=== PATIENT | female | born 1980 | race Caucasian/White ===

== ENCOUNTER 2017-10-13 08:38 | Outpatient (CLI) | payer BC ==
--- NOTE | 2017-10-13 14:30 | MRI ---
MRI CERVICAL SPINE WITH AND WITHOUT IV CONTRAST: Date: 10/13/17 INDICATION: Cervical spondylosis. TECHNIQUE: Multiplanar, multisequence MR images were obtained of the cervical spine with and without IV contrast . The patient received 10 mL of MultiHance for the exam. FINDINGS: Craniocervical junction and posterior fossa appear within normal limits. At C2-C3, there is mild facet joint degenerative change but without appreciable central canal or neur al foraminal narrowing. At C3-4, there is mild facet joint degenerative change without appreciable central canal or neural fo raminal narrowing. At C4-5, there is no appreciable central canal or neural foraminal narrowing. There is mild facet ost eoarthrosis. At C5-6, there is no appreciable central canal or neural foraminal narrowing. There is mild facet tamar nt degenerative change. At C6-7, there is no appreciable central canal or neural foraminal narrowing. At C7-T1, there is no appreciable central canal or neural foraminal narrowing present. Visualized postcontrast images demonstrate no definite abnormal enhancement. IMPRESSION: Mild facet osteoarthritic change of the cervical spine. No appreciable central canal or neural forami nal narrowing. POS: [facility]
--- NOTE | 2017-10-13 14:50 | MRI ---
MRI OF THE THORACIC SPINE WITH ND WITHOUT IV CONTRAST: INDICATION: Thoracic spondylosis. TECHNIQUE: Multiplanar, multisequence MR images were obtained of the thoracic spine with and without IV contrast utilizing 10 cc of MultiHance. FINDINGS: The vertebral body heights and intervertebral disk spaces appear preserved. Bone marrow signal inten sity appears within normal limits. There is diffuse intermediate signal intensity of the thoracic ve rtebral bodies which can be seen with some red marrow hyperplasia. No definite central canal or neural foraminal narrowing is evident. The spinal cord is of normal yumiko iber and signal. There are small bilateral pleural effusions incidentally noted. The postcontrast s eries demonstrates no abnormal region of enhancement. IMPRESSION: 1. No central canal or neural foraminal narrowing is evident. No definite abnormal enhancement demo nstrated. 2. Diffuse intermediate T1 signal involving the visualized actual bone marrow can be seen with red m arrow hypoplasia related to chronic anemia, smoking, or obesity. Recommend correlation with patient' s CBC. 3. Nonspecific small bilateral pleural effusions. POS: [facility]
--- NOTE | 2017-10-13 14:56 | MRI ---
MRI BRAIN WITH AND WITHOUT CONTRAST: Technique: Multiplanar, multisequence MRI images were obtained of the brain. Pre and post contrast im ages were obtained following a pituitary protocol with dynamic enhancement and an orbit protocol. 10 cc MultiHance was administered for the post contrast study. Indications: Right eye vision loss. Generalized weakness. Comparison: MRI brain 08-13-15. FINDINGS: Ventricles have normal size and position. No evidence of mass or edema. No significant white matter a bnormality. No evidence of restricted diffusion. Pituitary appears unremarkable for age. There is no evidence of pituitary adenoma identified on dynamic scans through the pituitary. The post contrast scans of the orbit are nondiagnostic due to motion artifact. The technologist state s that the patient kept falling asleep and moving during these sequences and optic nerves on post con trast exam cannot be adequately assessed. The optic nerves on the precontrast studies appear unremarkable. There is no abnormal T2 signal seen in the optic nerve. Globes appear unremarkable. Extraocular muscles appear normal and symmetric. The intracranial internal carotid arteries and proximal cerebral arteries show flow voids. Basilar ar dane is patent. Dural venous sinuses are patent. Paranasal sinuses and mastoids appear clear. IMPRESSION: Unremarkable MRI of the brain and the pituitary. The post contrast images through the orbit are nondi agnostic due to motion artifact. The optic nerves appear unremarkable on the precontrast images. POS: [facility]
[2017-10-13] MEDS ORDERED: Gadobenate Dimeglumine 529 MG/1 ML (20ML VIAL) ONE (16:31)
== END 2017-10-13 08:39 | disposition home or self-care (01) ==
LOC: MRI 08:38
PROVIDERS: ATTEND Psychiatry & Neurology Neurology
DX: M47.892 Other spondylosis, cervical region (principal); M47.894 Other spondylosis, thoracic region; H53.47 Heteronymous bilateral field defects; J90 Pleural effusion, not elsewhere classified
CPT/HCPCS: 70553; 72156; 72157; A9579

== ENCOUNTER 2022-08-03 11:39 | Observation (INO) | payer BC ==
[2022-08-03] MEDS ORDERED: Levofloxacin 500 mg/D5W 100 ml Premix Bag ONE (12:13)
[2022-08-03] MEDS ORDERED: Ondansetron PF 4 MG/2 ML Vial ONE ×2 (12:13→12:38)
[2022-08-03] MEDS ORDERED: Fentanyl 100 MCG/2 ML VIAL ONE ×3 (12:13→14:38)
[2022-08-03] MEDS ORDERED: Acetaminophen 325 MG TAB PO PRN (12:15)
[2022-08-03] MEDS ORDERED: Guaifenesin DM 100-10/5 ML UDCUP PO PRN (12:15)
[2022-08-03] MEDS ORDERED: Senokot S 8.6-50 MG TAB PO PRN (12:15)
[2022-08-03] MEDS ORDERED: Calcium Carbonate 500 MG ChewTAB PO PRN (12:15)
[2022-08-03] MEDS ORDERED: Morphine 2 MG/ML VIAL SLOW IVP PRN (12:17)
[2022-08-03] MEDS ORDERED: Iopamidol 30 ML ONE (12:19)
[2022-08-03] MEDS ORDERED: fentaNYL PF 100 MCG/2 ML SYRINGE ONE (12:22)
[2022-08-03] MEDS ORDERED: Famotidine/PF 20 mg/2ml Vial ONE (12:23)
[2022-08-03] MEDS ORDERED: Rocuronium Bromide 10 MG/ML (10ML VIAL) ONE (12:38)
[2022-08-03] MEDS ORDERED: Dexamethasone 20 MG/5 ML VIAL ONE (12:38)
[2022-08-03] MEDS ORDERED: Lidocaine 1% PF 5 ML VIAL ONE (12:38)
[2022-08-03] MEDS ORDERED: Ketorolac Tromethamine 30 MG/ML VIAL ONE (12:38)
[2022-08-03] MEDS ORDERED: Succinylcholine Chloride 100 MG/5 ML SYRINGE FS ONE (12:38)
[2022-08-03] MEDS ORDERED: PROPOFOL 200 MG/20 ML VIAL ONE (12:38)
[2022-08-03] MEDS ORDERED: SUGAMMADEX SODIUM 200 MG/2 ML VIAL ONE (12:48)
[2022-08-03] MEDS ORDERED: cefTRIAXone\\ROCEPHIN 2 GM in Sodium Chloride 0.9% 100 ML IVPB SCH (13:00)
[2022-08-03] MEDS ORDERED: cefTRIAXone\\ROCEPHIN 2 GM VIAL ONE (14:39)
[2022-08-03] MEDS ORDERED: Sodium Chloride 0.9% 100 ML ONE (14:39)
[2022-08-03] MEDS: Sodium Chloride 0.9% 1,000 ML IV SCH ×2 (15:22→20:23)
[2022-08-03 15:42] VITALS: BMI 34.4
[2022-08-03] MEDS ORDERED: Acetaminophen 500 MG TAB PO PRN (17:36)
[2022-08-03] MEDS ORDERED: Oxybutynin 5 MG TAB PO PRN (17:36)
[2022-08-03] MEDS ORDERED: diphenhydrAMINE 50 MG/ML VIAL IVP PRN (17:36)
[2022-08-03] MEDS ORDERED: Phenazopyridine HCl 100 MG TAB PO PRN (17:40)
[2022-08-03] MEDS: Famotidine 20 MG TAB PO SCH (20:22)
[2022-08-03] MEDS: HYDROcodone/Acetaminophen 5/325 mg Tablet PO PRN (20:22)
[2022-08-03] MEDS: Docusate 100 MG CAP PO SCH (20:22)
[2022-08-03] MEDS: Ondansetron PF 4 MG/2 ML Vial IVP PRN (20:23)
[2022-08-04] MEDS: Sodium Chloride 0.9% 1,000 ML IV SCH (05:30)
[2022-08-04 07:52] LABS: #Eosinphils 0.1 thou/uL (0.0-0.7); #Lymphocytes 1.8 thou/uL (1.20-3.40); #Monocytes 0.5 thou/uL (0.11-0.59); #Neutrophils 2.8 thou/uL (1.40-6.50); %Basophils 0.3 % (0.0-1.0); %Eosinophils 1.7 % (0.0-10.0); %Lymphocytes 34.3 % (21.0-51.0); %Monocytes 10.2 % (0.0-10.0); %Neutrophils 53.5 % (42.0-75.0); Hemoglobin 11.2 g/dL (12.0-16.0); Mean Corpuscular HGB CONC 32.4 g/dL (32.0-36.0); Mean Corpuscular Hemoglobin 29.6 pg (27.0-31.0); Mean Corpuscular Volume 91.5 fl (78.0-98.0); Mean Platelet Volume 8.7 fL (7.4-10.4); Platelet Count 132 10x3/uL (130-400); RBC Distribution Width 11.4 % (11.5-14.5); Red Blood Cell (RBC) Count 3.78 mill/uL (4.20-5.40); White Blood Cell (WBC) Count 5.3 10x3/uL (4.8-10.8)
[2022-08-04 07:59] VITALS: TEMP 97.5
[2022-08-04 08:09] LABS: ALT (SGPT) 9 U/L (8-55); AST (SGOT) 13 U/L (5-34); Albumin 3.3 g/dL (3.5-5.0); Alkaline Phosphatase 40 U/L (40-110); Anion Gap 9 mmol/L (10-20); BUN (Urea Nitrogen) 10 mg/dL (7.0-18.7); Bilirubin, Total 0.6 mg/dL (0.2-1.2); Calc. Creatinine Clearance 145 mL/min (70-130); Calcium 8.5 mg/dL (7.8-10.44); Carbon Dioxide 23 mmol/L (22-29); Chloride 110 mmol/L (98-107); Estimated GFR 80; Globulin 2.8 g/dL (2.4-3.5); Glucose 85 mg/dL (70-105); Potassium 3.9 mmol/L (3.5-5.1); Protein, Total 6.1 g/dL (6.0-8.3); Sodium 138 mmol/L (136-145)
[2022-08-04] MEDS: Famotidine 20 MG TAB PO SCH (08:10)
[2022-08-04] MEDS: Ondansetron PF 4 MG/2 ML Vial IVP PRN (08:10)
[2022-08-04] MEDS: Docusate 100 MG CAP PO SCH (08:10)
[2022-08-04] MEDS: HYDROcodone/Acetaminophen 5/325 mg Tablet PO PRN (08:22)
[2022-08-04 11:39] LABS: Clarity Hazy (Clear)
[2022-08-04 11:40] LABS: Bilirubin Unable to Interpret (Negative); Blood, Urine Unable to Interpret (Negative); Glucose, Urine (Dipstick) Unable to Interpret mg/dL (Negative); Ketone, Urine Unable to Interpret mg/dL (Negative); Leukocyte Unable to Interpret (Negative); Nitrite Unable to Interpret (Negative); Protein, Urine (Dipstick) Unable to Interpret mg/dL (Neg-Trace); RBC/HPF Greater than 50 HPF (0-3); Specific Gravity, Urine 1.018 (1.002-1.036); Urobilinogen UNABLE TO INTERPRET mg/dL (Less than 2)
[2022-08-04 11:41] LABS: Bacteria/HPF Rare-Few HPF (None Seen)
[2022-08-04 11:56] VITALS: BP 120/75
== END 2022-08-04 12:54 | disposition home or self-care (01) ==
LOC: SDC 11:39 → T4-B 15:18
PROVIDERS: ADMIT Internal Medicine; ATTEND Internal Medicine
PROC: 0T778DZ Dilation of Left Ureter with Intraluminal Device, Via Natural or Artificial Opening Endoscopic (ICD-10-PCS; principal; 2022-08-03)
DX: N13.2 Hydronephrosis with renal and ureteral calculous obstruction (principal); N13.4 Hydroureter; E03.9 Hypothyroidism, unspecified; M79.7 Fibromyalgia; Z87.891 Personal history of nicotine dependence; Z79.890 Hormone replacement therapy; Z79.899 Other long term (current) drug therapy; Z88.1 Allergy status to other antibiotic agents
CPT/HCPCS: 36415; 74420; 80053; 81001; 85025; 87040; 87086; C2617; J0696; J1100; J1885; J1956; J2405; J2704; J3010; J3490; J7050; Q9967; S0028

== ENCOUNTER 2022-08-09 08:14 | Day surgery (SDC) | payer BC ==
[2022-08-06 14:00] VITALS: BMI 36.2
[2022-08-09] MEDS ORDERED: Iopamidol 30 ML ONE (10:29)
[2022-08-09] MEDS ORDERED: fentaNYL PF 100 MCG/2 ML SYRINGE ONE (10:46)
[2022-08-09] MEDS ORDERED: Levofloxacin 500 mg/D5W 100 ml Premix Bag ONE (10:52)
[2022-08-09] MEDS ORDERED: Ketorolac Tromethamine 30 MG/ML VIAL ONE (10:59)
[2022-08-09] MEDS ORDERED: PROPOFOL 200 MG/20 ML VIAL ONE (10:59)
[2022-08-09] MEDS ORDERED: NEOSTIGMINE 3 MG/3 ML SYR 3 MG/3 ML SYRINGE ONE (10:59)
[2022-08-09] MEDS ORDERED: Glycopyrrolate 0.2 MG/ML 5 ML SYRINGE ONE (10:59)
[2022-08-09] MEDS ORDERED: Rocuronium Bromide 10 MG/ML (10ML VIAL) ONE (10:59)
[2022-08-09] MEDS ORDERED: Lidocaine 1% PF 5 ML VIAL ONE (10:59)
[2022-08-09] MEDS ORDERED: Dexamethasone 20 MG/5 ML VIAL ONE (10:59)
[2022-08-09] MEDS ORDERED: Ondansetron PF 4 MG/2 ML Vial ONE (10:59)
[2022-08-09] MEDS ORDERED: Phenazopyridine HCl 100 MG TAB ONE (11:59)
== END 2022-08-09 12:54 | disposition home or self-care (01) ==
LOC: SDC 08:14
PROVIDERS: ATTEND Urology
PROC: 0T778DZ Dilation of Left Ureter with Intraluminal Device, Via Natural or Artificial Opening Endoscopic (ICD-10-PCS; principal; 2022-08-09)
PROC: 0TC78ZZ Extirpation of Matter from Left Ureter, Via Natural or Artificial Opening Endoscopic (ICD-10-PCS; principal; 2022-08-09)
DX: N20.1 Calculus of ureter (principal); M19.90 Unspecified osteoarthritis, unspecified site; M79.7 Fibromyalgia; Z79.2 Long term (current) use of antibiotics; Z79.890 Hormone replacement therapy; Z79.899 Other long term (current) drug therapy; Z88.1 Allergy status to other antibiotic agents; Z88.2 Allergy status to sulfonamides; Z88.8 Allergy status to other drugs, medicaments and biological substances
CPT/HCPCS: 74018; 74420; 82365; 88300; C1769; C2617; J1100; J1885; J1956; J2405; J2704; Q9967

== ENCOUNTER 2022-11-09 09:40 | Emergency (ER) | payer BC ==
[2022-11-09] MEDS ORDERED: Cyclobenzaprine 10 MG TAB ONE (10:51)
[2022-11-09] MEDS ORDERED: predniSONE 20 MG TAB ONE (10:51)
[2022-11-09] MEDS ORDERED: HYDROcodone/Acetaminophen 5/325 mg Tablet ONE (10:58)
[2022-11-09] MEDS ORDERED: Ketorolac Tromethamine 30 MG/ML VIAL ONE (10:58)
[2022-11-09] MEDS ORDERED: Gabapentin 300 MG CAP PO SCH (12:00)
== END 2022-11-09 14:22 | disposition home or self-care (01) ==
LOC: ERS 09:40
DX: M25.551 Pain in right hip (principal); M54.10 Radiculopathy, site unspecified
CPT/HCPCS: 96372; J1885; J7512

== ENCOUNTER 2022-11-23 10:08 | Outpatient (CLI) | payer BC | END 2022-11-23 10:09 | disposition home or self-care (01) | LOC: ULT 10:08 | PROVIDERS: ATTEND Urology | DX: N20.0 Calculus of kidney (principal); N20.1 Calculus of ureter; Z98.890 Other specified postprocedural states | CPT/HCPCS: 74018; 76770 ==